=== PATIENT | male | born 1955 | race Caucasian/White ===

== ENCOUNTER 2017-07-18 12:16 | Inpatient (IN) | payer MEDICARE, MEDICAID ==
[~2017-07-18] VITALS: Ht 190.5 cm; Wt 133.8 kg
--- NOTE | 2017-07-18 15:49 | NUR ---
REPORT GIVEN TO JAIME NEWELL, TO ROOM 313-2
--- NOTE | 2017-07-18 15:50 | NUR ---
RN NOTES RECEIVED PATIENT FROM ER VIA [facility] ASSISTED PT TO BED, AWAKE ALERT AND VERBALLY RESPONSIVE, ABLE TO MAKE NEEDS KNOWN. RESPIRATIONS EVEN AND UNLABORED, PATIENT WITH COMPLAINT OF CHRONIC MUSCLE SPASMS DR. NGO AWARE OF MED RECON WILL CONTINUE TO MONITOR AND ASSESS. PATIENT REFUSING IV ACCESS AT THIS TIME MD AWARE. WILL CONTINUE TO ASSIST WITH ADMISSION PROCESS. PT IS A SMOKER WILL MAKE MD AWARE OF REQUEST TO GO OUT TO SMOKE, SAFETY MEASURES IN PLACE.
[2017-07-18 16:00] VITALS: BP 149/106
[2017-07-18] MEDS ORDERED: ONDANSETRON HCL/PF 4 MG/2 ML VIAL IVP PRN (16:00)
[2017-07-18] MEDS ORDERED: ACETAMINOPHEN 325 MG TABLET PO PRN (16:00)
[2017-07-18] MEDS ORDERED: ZOLPIDEM TARTRATE 5 MG TABLET PO PRN (16:00)
[2017-07-18] MEDS ORDERED: HYDROCODONE/APAP 5/325MG 1 EACH TABLET PO PRN (16:00)
[2017-07-18] MEDS ORDERED: MAGNESIUM HYDROXIDE 30 ML UDC PO PRN (16:00)
[2017-07-18] MEDS ORDERED: MAG HYDROX/AL HYDROX/SIMETH 30 ML UDC PO PRN (16:00)
[2017-07-18] MEDS ORDERED: Z GUARD REMEDY 2 OZ OINT TP PRN (16:00)
[2017-07-18] MEDS ORDERED: NAPR500T6 PO (16:19)
[2017-07-18] MEDS ORDERED: FOLI1TAB16 PO (16:19)
[2017-07-18] MEDS ORDERED: TIZA4TAB4 PO (16:19)
[2017-07-18] MEDS ORDERED: BACL20TA PO (16:19)
[2017-07-18] MEDS ORDERED: GABA600T2 PO (16:19)
[2017-07-18] MEDS: BACLOFEN (10 MG) 10 MG TABLET PO SCH ×2 (17:50→22:14)
--- NOTE | 2017-07-18 18:52 | NUR ---
RN NOTES PATIENT AWAKE ALERT AND VERBALLY RESPONSIVE, ABLE TO MAKE NEEDS KNOWN. RESPIRATIONS EVEN AND UNLABORED, PATIENT WITH CONTINUED PAIN MANAGEMENT WILL CONTINUE TO MONITOR AND ASSESS. PATIENT REFUSING IV ACCESS AT THIS TIME MD AWARE. WILL CONTINUE TO ASSIST WITH ADMISSION PROCESS. PT IS A SMOKER WILL MD AWARE OF REQUEST TO GO OUT TO SMOKE, SAFETY MEASURES IN PLACE, WILL CONTINUE TO MONITOR AND ENDORSE TO NEXT SHIFT FOR CONTINUITY OF CARE.
--- NOTE | 2017-07-18 19:35 | NUR ---
MSRN FULLY AWAKE, INSISTED TO GO OUT FOR A SMOKE, INFORMED CONDITION OUTSIDE HOSPITAL, STILL INSISTED TO GO OUT FOR A SMOKE. STATED HE SIGNED WAIVER. NO RESPIRATORY DISTRESS OF THIS TIME. TO CONTINUE.
[2017-07-18 20:15] VITALS: BP 152/92
[2017-07-18 20:18] VITALS: BP 152/92
--- NOTE | 2017-07-18 20:45 | NUR ---
ELIE WENT OUT FOR A SMOKE ACCOMPANIED BY CARD SELLER VIA WHEELCHAIR. ALMOST FELL EARLIER STOOD UP BY HIMSELF WITHOUT CALLING FOR ASSISTANCE, FOUND SITTING AT THE EDGE OF HIS BED, STATED TRYING TO TRANSFER SELF TO OWN WHEELCHAIR. ASSISTED BY STAFF TO WHEELCHAIR, UNABLE TO, ASSISTED TO SIT ON THE FLOOR INSTEAD AND CALLED OTHER STAFF TO HELP ASSIST PATIENT TO WHEELCHAIR. DENIES ANY DISCOMFORTS OR ANY TYPE OF PAIN.
--- NOTE | 2017-07-18 22:17 | NUR ---
MSRN VERBALIZES SEVERE LEG CRAMPS, REQUESTED BACLOFEN TO BE GIVEN EARLY INSTEAD OF MIDNIGHT. REQUESTED ADVIL TOO, MEDICATION REGIMEN REVIEWED WITH PATIENT, STILL WANTED ADVIL, AGREED TO HAVE TYLENOL 650 MG PO INSTEAD. DOES NOT WANT TO BE BOTHERED AFTER TAKING MEDS, TYLENOL 650 MG TO BE TAKEN AN HOUR POST BACLOFEN. WHEELCHAIR BOUND, HFR, SAFETY PRECAUTIONS EMPHASIZED, WELL UNDERSTOOD.
--- NOTE | 2017-07-19 06:45 | NUR ---
MSRN UNABLE T O GIVE 6AM DOSE BACLOFEN, PATIENT SLEEPING. WILL ENDORSE TO INCOMING RN BACLOFEN. NEED MRSA SWAB.. WILL ENDORSE TO INCOMING RN.
[2017-07-19 08:00] VITALS: BP 110/97
--- NOTE | 2017-07-19 08:00 | NUR ---
RN NOTES PATIENT SLEEPING AT THIS TIME, NO RESPIRATORY DISTRESS, NO ACUTE DISTRESS, AROUSE WHEN CALLED NAME OR TOUCHED, CALL LIGHT WITHIN TO REACH, SAFETY PRECAUTION MAINTAINED ALL THE TIME.
--- NOTE | 2017-07-19 10:00 | NUR ---
RN NOTES PATIENT REFUSED MORNING LABS TO BE TAKEN.
[2017-07-19] MEDS: NAPROXEN 250 MG TABLET PO SCH ×2 (10:25→17:34)
[2017-07-19] MEDS: FOLIC ACID 1 MG TABLET PO SCH (10:26)
[2017-07-19] MEDS: GABAPENTIN 300 MG CAPSULE PO SCH ×3 (10:26→17:34)
[2017-07-19] MEDS: BACLOFEN (10 MG) 10 MG TABLET PO SCH ×3 (12:20→23:10)
--- NOTE | 2017-07-19 13:00 | NUR ---
RN NOTES PATIENT IN THE ROOM AFTER SMOKING. NO ACUTE DISTRESS, PATIENT ASSIST SELF TURN AND REPOSITION Q 2 HR, SCHEDULED MEDICATION ADMINISTERED, V/S STABLE, ENCOURAGED TO EXPRESS FEELINGS AND CONCERNS. CALL LIGHT WITHIN TO REACH, SAFETY PRECAUTION MAINTAINED ALL THE TIME.
[2017-07-19 16:00] VITALS: BP 183/93
--- NOTE | 2017-07-19 18:00 | NUR ---
RN NOTES PATIENT EATING, V/S STABLE, NO ACUTE DISTRESS, SCHEDULED MEDICATION ADMINISTERED, USING URINAL, CALL LIGHT WITHIN TO REACH. ENDORSED ONCOMING NURSE FOR CONTINUATION OF CARE.
--- NOTE | 2017-07-19 19:10 | NUR ---
MS RN NOTES RECEIVED PT SITTING UP IN BED, AWAKE, A/O X 4. NO DISTRESS, NOS OB NOTED. RESPIRATION IS EVEN AND UNLABORED. DENIES ANY PAIN OR DISCOMFORT AT THIS TIME. SKIN IS INTACT. PT REFUSED IV INSERTION , RISK AND BENEFITS EXPLAINED. PT STILL REFUSED. ALL NEEDS ATTENDED AND MET. SAFETY PRECAUTIONS OBSERVED. CALL LIGHT WITHIN REACH. WILL CONT TO MONITOR.
[2017-07-19 20:00] VITALS: BP 155/87
--- NOTE | 2017-07-19 20:30 | NUR ---
PT WENT OUTSIDE THE HOSPITAL TO SMOKE, ACCOMPANIED WITH SHUBHAM SILVA. CHARGE NURSE AWARE.
--- NOTE | 2017-07-19 20:44 | NUR ---
PT CAME BACK FROM SMOKING SAFELY IN STABLE CONDITION , ACCOMPANIED WITH SHUBHAM SILVA.
[2017-07-20] MEDS: BACLOFEN (10 MG) 10 MG TABLET PO SCH ×3 (06:18→17:45)
--- NOTE | 2017-07-20 06:58 | NUR ---
MS RN NOTES PT IN BED, RESTING COMFORTABLY AT THIS TIME, AROUSES EASILY. A/O X 4. NO DISTRESS, NOS OB NOTED. RESPIRATION IS EVEN AND UNLABORED. DENIES ANY PAIN OR DISCOMFORT AT THIS TIME. SKIN IS INTACT. ALL DUE MEDS GIVEN. ALL NEEDS ATTENDED AND MET. SAFETY PRECAUTIONS OBSERVED. CALL LIGHT WITHIN REACH. WILL ENDORSE TO NEXT SHIFT FOR BRANDON.
--- NOTE | 2017-07-20 07:30 | NUR ---
MS/RN Patient received Patient receive from night worker. Sleeping at this time, appears comfortable, in no distress. Call light within reach, bed in low setting, brakes locked and side rails X3 in upright position. Will continue to monitor and ensure safety.
[2017-07-20 08:00] VITALS: BP 150/83
--- NOTE | 2017-07-20 09:00 | NUR ---
MS/RN Medications Morning medications administered as ordered.
[2017-07-20] MEDS: GABAPENTIN 300 MG CAPSULE PO SCH ×3 (10:08→17:46)
[2017-07-20] MEDS: FOLIC ACID 1 MG TABLET PO SCH (10:08)
[2017-07-20] MEDS: NAPROXEN 250 MG TABLET PO SCH ×2 (10:09→17:45)
[2017-07-20] MEDS: AMLODIPINE BESYLATE 5 MG TABLET PO SCH (13:47)
--- NOTE | 2017-07-20 14:28 | NUR ---
MS/RN S/B Dr Lyons Seen by Dr Lyons - morning labs ordered. Norvasc 5mg daily ordered, to be started today.
[2017-07-20 16:00] VITALS: BP 154/94
[2017-07-20 16:30] VITALS: BP 159/94
--- NOTE | 2017-07-20 18:49 | NUR ---
MS/RN End note No changes in plan of care, all needs attended. Awaiting SNF to reopen to discharge back to facility. Will endorse to shift mgr.
--- NOTE | 2017-07-20 19:15 | NUR ---
MS RN NOTES RECEIVED PT SITTING UP IN WC. A/O X 4. NO DISTRESS, NO SOB NOTED. RESPIRATION IS EVEN AND UNLABORED. DENIES ANY PAIN OR DISCOMFORT AT THIS TIME. SKIN IS INTACT. ALL NEEDS ATTENDED AND MET. SAFETY PRECAUTIONS OBSERVED. CALL LIGHT WITHIN REACH. WILL CONT TO MONITOR.
[2017-07-20 20:00] VITALS: BP 157/95
[2017-07-21] MEDS: BACLOFEN (10 MG) 10 MG TABLET PO SCH ×4 (00:14→17:26)
--- NOTE | 2017-07-21 06:47 | NUR ---
MS RN NOTES PT IN BED, RESTING COMFORTABLY, AROUSES EASILY. REMAINS STABLE. NO SOB NOR DISTRESS NOTED. ALL DUE MEDICATIONS GIVEN. NO C/O PAIN OR DISCOMFORT AT THIS TIME. WILL ENDORSE TO NEXT SHIFT FOR BRANDON.
--- NOTE | 2017-07-21 07:19 | NUR ---
MS RN OPENING NOTES RECEIVED PT ASLEEP IN BED, EASILY AWAKENS. A/O X 4, SAME ABLE TO MAKE NEEDS KNOWN, DENIES PAIN OR DISCOMFORTS AT THIS TIME. ON ROOM AIR, RESPIRATION IS EVEN AND UNLABORED. HOB ELEVATED. BED IN LOW AND LOCKED POSITION. CALL LIGHT WITHIN REACH . WILL CONTINUE TO MONITOR ACCORDINGLY.
[2017-07-21 08:00] VITALS: BP 125/80
[2017-07-21] MEDS: NAPROXEN 250 MG TABLET PO SCH ×2 (09:10→17:26)
[2017-07-21] MEDS: GABAPENTIN 300 MG CAPSULE PO SCH ×3 (09:11→17:26)
[2017-07-21] MEDS: AMLODIPINE BESYLATE 5 MG TABLET PO SCH (09:11)
[2017-07-21] MEDS: FOLIC ACID 1 MG TABLET PO SCH (09:11)
--- NOTE | 2017-07-21 11:53 | NUR ---
WOUND CARE CONSULT: PT PRESENTS WITH DRY SKIN ON LOWER EXTREMITIES. RECOMMENDATIONS MADE FOR SKIN PROTECTION. DISCUSSED WITH NURSING STAFF. PT ABLE TO TRANSFER FROM BED TO . PT STATES IS CONTINENT. PT REFUSED FULL SKIN ASSESSMENT OF BUTTOCKS. WILL SEE PRN. VALLES IN AGREEMENT WITH PLAN OF CARE.
[2017-07-21] MEDS ORDERED: MINERAL OIL/PETROLATUM,WHITE 120 GM JAR TP PRN (12:00)
[2017-07-21 16:00] VITALS: BP 122/85
--- NOTE | 2017-07-21 19:37 | NUR ---
RN NOTES PT SITTING ON HIS WHEELCHAIR AT THIS VEENA. A/O X 4, VERBALLY RESPONSIVE. NO ACUTE SIGNS OF DISTRESS. ON ROOM AIR, BREATHING WELL. ALL NEEDS AND CARE ATTENDED WELL. PT FOR DISCHARGE TO [facility]. REPORT GIVEN TO EUGENIE OF [facility]. ENDORSED TO HEALTH AND SAFETY ADVISOR NURSE FOR BRANDON. .
--- NOTE | 2017-07-21 19:52 | NUR ---
Pt. alert, awake, oriented x 4, pt. ready to be discharged, pt. aware of discharge back to [facility], papers ready and gave packet of discharge papers to 2 ambulance personnel and gave report about the pt. Pt. vitals sign stable, no s/s of pain or discomfort, afebrile, denies any pain, pt. signed discharge paper and verbalized understanding of discharge instructions, pt. iphone is with Rolando Ridley as one of the pt. in the M1- first floor who is his friend and his iphone is charging in Mr. Pruett bedroom and the ambulance personnel is getting the iphone for him from the first floor, pt. is going down there by yancy with the help of ambulance personnel and they will get the iphone from M1 floor. pt. discharge @ around this time by yancy/lisy back to [facility].
== END 2017-07-21 20:15 | DRG 918 ==
LOC: ER 12:17 → EDBD 12:17 → ER 15:49 → MED 15:54
PROVIDERS: ADMIT Internal Medicine; ATTEND Internal Medicine
DX: T59.811A Toxic effect of smoke, accidental (unintentional), initial encounter (principal); G62.9 Polyneuropathy, unspecified; J70.5 Respiratory conditions due to smoke inhalation; J44.9 Chronic obstructive pulmonary disease, unspecified; I73.9 Peripheral vascular disease, unspecified; Y92.129 Unspecified place in nursing home as the place of occurrence of the external cause; G83.10 Monoplegia of lower limb affecting unspecified side
CPT/HCPCS: 87081-TC; A4606; Z7610